=== PATIENT | female | born 1945 | race Caucasian/White ===

== ENCOUNTER 2021-04-29 16:27 | Inpatient (IN) | payer MEDICARE ==
[~2021-04-29] VITALS: Ht 157.5 cm; Wt 125.7 kg
[~2021-04-29 16:27] MED LIST: CALCIUM + D3 E1 EACH PO; CARTIA XT240 MG PO; CATAPRES-TTS 11 EACH TP; COLACE 100MG C100 MG PO; CURCUMIN250 GM MC; ECOTRIN81 MG PO; GLUCOPHAGE500 MG PO; HYDRALAZINE HCL50 MG PO; IBUPROFEN600 MG PO; LOPRESSOR100 MG PO; NORCO 5-325 TA1 EACH PO; PRESERVISION A1 EAC2 PO; SUPER B-COMPL400 MCG PO; VALSARTAN-HCTZ1 EAC2 PO; VITAMIN E1000 UNIT PO
[2021-04-29] MEDS ORDERED: NORFLEX 100 MG100 MG PO (20:12)
[2021-04-29 23:09] LABS: HEMOGLOBIN 13.7 gm/dl (12.3-15.3); RED BLOOD COUNT 4.8 M/UL (4.00-5.10); WHITE BLOOD COUNT 17.2 K/UL (4.5-11.0)
[2021-04-29 23:22] LABS: BUN/CREATININE RATIO 16 (0-10)
[2021-04-30] MEDS ORDERED: OMEPRAZOLE20 MG PO (09:54)
[2021-04-30] MEDS ORDERED: MIRALAX17 GM PO (09:58)
[2021-04-30] MEDS ORDERED: BIOTIN1 MG PO (09:59)
[2021-04-30] MEDS ORDERED: SENNA-S 8.6-501 EACH PO (10:01)
[2021-04-30] MEDS ORDERED: MULTIVITAMIN1 EACH PO (10:01)
[2021-04-30] MEDS ORDERED: IFEREX 150150 MG PO (10:05)
[2021-05-01 05:13] LABS: WHITE BLOOD COUNT 13.5 K/UL (4.5-11.0)
[2021-05-01 05:17] LABS: HEMOGLOBIN 10.3 gm/dl (12.3-15.3); RED BLOOD COUNT 3.63 M/UL (4.00-5.10)
[2021-05-02 04:03] LABS: HEMOGLOBIN 9.9 gm/dl (12.3-15.3); RED BLOOD COUNT 3.45 M/UL (4.00-5.10); WHITE BLOOD COUNT 14.7 K/UL (4.5-11.0)
[2021-05-03 02:46] LABS: HEMOGLOBIN 9.2 gm/dl (12.3-15.3); RED BLOOD COUNT 3.24 M/UL (4.00-5.10); WHITE BLOOD COUNT 11.8 K/UL (4.5-11.0)
[2021-05-04 03:38] LABS: HEMOGLOBIN 9.1 gm/dl (12.3-15.3); RED BLOOD COUNT 3.21 M/UL (4.00-5.10); WHITE BLOOD COUNT 11.1 K/UL (4.5-11.0)
[2021-05-04 04:04] LABS: BUN/CREATININE RATIO 23 (0-10)
[2021-05-04] MEDS ORDERED: VALSARTAN80 MG PO ×2 (10:39→10:40)
[2021-05-04] MEDS ORDERED: HYDROCODON-ACE1 EAC4 PO (10:39)
[2021-05-04] MEDS ORDERED: ENOXAPARIN40 MG/0.4 SC (10:39)
== END 2021-05-04 19:00 | DRG 481 ==
LOC: ER1 16:27 → M/S 21:53 → CDU 21:53 → M/S 23:30
PROVIDERS: Orthopaedic Surgery; Physician Assistant; ADMIT Internal Medicine
PROC: 0QS604Z Reposition Right Upper Femur with Internal Fixation Device, Open Approach (ICD-10-PCS; principal; 2021-04-30 12:15)
DX: S72.141A Displaced intertrochanteric fracture of right femur, initial encounter for closed fracture (principal); D62 Acute posthemorrhagic anemia; Z68.43 Body mass index [BMI] 50.0-59.9, adult; S72.001A Fracture of unspecified part of neck of right femur, initial encounter for closed fracture; W18.30XA Fall on same level, unspecified, initial encounter; I10 Essential (primary) hypertension; G89.29 Other chronic pain; E11.9 Type 2 diabetes mellitus without complications; D72.828 Other elevated white blood cell count; E66.01 Morbid (severe) obesity due to excess calories; Y92.098 Other place in other non-institutional residence as the place of occurrence of the external cause; Z85.89 Personal history of malignant neoplasm of other organs and systems; Z79.01 Long term (current) use of anticoagulants; Z79.82 Long term (current) use of aspirin; Z85.53 Personal history of malignant neoplasm of renal pelvis; Z90.49 Acquired absence of other specified parts of digestive tract; Z90.710 Acquired absence of both cervix and uterus; Z98.890 Other specified postprocedural states; Z90.5 Acquired absence of kidney; Z88.1 Allergy status to other antibiotic agents; Z88.0 Allergy status to penicillin; Z80.9 Family history of malignant neoplasm, unspecified
CPT/HCPCS: 36415; 72192; 73502; 73552; 73564; 76000; 80048; 80053; 82728; 82962; 83540; 83550; 85025; 85610; 85730; 86850; 86900; 86901; 93005; 97110-GP-CQ; 97162; 97165; 97530; 97530-GP-CQ; 97535; 99285; C1713; J0171; J1100; J1650; J2001; J2270; J2370; J2405; J2704; J2795; J7030; J7120; U0002